=== PATIENT | female | born 1950 | race Caucasian/White ===

== ENCOUNTER 2018-09-09 20:53 | Emergency (ER) | payer MEDICARE ==
[~2018-09-09] VITALS: Ht 167.6 cm; Wt 65.0 kg
[2018-09-09 21:50] LABS: HEMATOCRIT 49.2 % (37.0-47.0); HEMOGLOBIN 16.3 g/dl (12.0-16.0); IMMATURE GRANULOCYTES 3.9 % (0.0-5.0); MEAN CELL VOLUME 110.6 fL CALC (80.0-100.0); MEAN CORPUSCULAR HGB 36.6 pG CALC (26.0-32.0); MEAN CORPUSCULAR HGB CONC 33.1 g/L CALC (32.0-36.0); NEUT# 12.32 thou/uL (2.00-7.15); RED BLOOD COUNT 4.45 mill/uL (4.20-5.60); RED CELL DISTRI WIDTH 14.6 % (11.5-15.5)
[2018-09-09 22:00] VITALS: BP 160/70
[2018-09-09 22:01] LABS: ALBUMIN 4.2 g/dL (3.2-5.0); ALKALINE PHOSPHATASE 41 u/l (38-126); ANION GAP 18 (6-22 (CALC)); BILIRUBIN, TOTAL 0.6 mg/dL (0.0-1.4); BUN 14 mg/dL (8-23); BUN/CREATININE RATIO 18 (12-20 (CALC)); CARBON DIOXIDE 19 mmol/l (22-30); CHLORIDE 109 mmol/l (95-108); CREATININE 0.8 mg/dL (0.5-1.0); GFR > 60 ML/MIN (>=60 (CALC)); GFR FOR AFR.AMER. > 60 ML/MIN (>=60 (CALC)); POTASSIUM 4.8 mmol/l (3.5-5.1); SGOT/AST 65 u/l (9-36); SODIUM 141 mmol/l (137-146); TOTAL PROTEIN 7.2 g/dL (6.3-8.2)
[2018-09-09 22:13] LABS: MYOGLOBIN 286 ng/mL (0 - 62)
== END 2018-09-09 22:08 | disposition short-term general hospital (02) ==
LOC: ED 20:53
PROVIDERS: Family Medicine
PROC: 0BH17EZ Insertion of Endotracheal Airway into Trachea, Via Natural or Artificial Opening (ICD-10-PCS; principal; 2018-09-09)
PROC: 0T9B70Z Drainage of Bladder with Drainage Device, Via Natural or Artificial Opening (ICD-10-PCS; 2018-09-09)
DX: J96.00 Acute respiratory failure, unspecified whether with hypoxia or hypercapnia (principal); J44.1 Chronic obstructive pulmonary disease with (acute) exacerbation; F17.210 Nicotine dependence, cigarettes, uncomplicated; R00.0 Tachycardia, unspecified; R06.02 Shortness of breath

== ENCOUNTER 2018-10-02 11:21 | Emergency (ER) | payer MEDICARE ==
[~2018-10-02] VITALS: Ht 167.6 cm; Wt 56.8 kg
[2018-10-02 12:06] LABS: HEMOGLOBIN 16.3 g/dl (12.0-16.0); IMMATURE GRANULOCYTES 0.9 % (0.0-5.0); MEAN CELL VOLUME 105.8 fL CALC (80.0-100.0); MEAN CORPUSCULAR HGB 35.2 pG CALC (26.0-32.0); MEAN CORPUSCULAR HGB CONC 33.3 g/L CALC (32.0-36.0); NEUT# 12.87 thou/uL (2.00-7.15); RED BLOOD COUNT 4.63 mill/uL (4.20-5.60); RED CELL DISTRI WIDTH 13.7 % (11.5-15.5)
[2018-10-02 12:23] LABS: ANION GAP 12 (6-22 (CALC)); BUN 23 mg/dL (8-23); BUN/CREATININE RATIO 22 (12-20 (CALC)); CHLORIDE 102 mmol/l (95-108); GFR 55 ML/MIN (>=60 (CALC)); GFR FOR AFR.AMER. > 60 ML/MIN (>=60 (CALC)); POTASSIUM 3.9 mmol/l (3.5-5.1); SODIUM 142 mmol/l (137-146)
[2018-10-02 12:28] LABS: CARBON DIOXIDE 32 mmol/l (22-30)
[2018-10-02] MEDS ORDERED: PROTONIX40 M2 PO (12:48)
[2018-10-02] MEDS ORDERED: BRILINTA90 MG PO (12:49)
[2018-10-02] MEDS ORDERED: ATORVASTATIN CA40 MG PO (12:49)
[2018-10-02] MEDS ORDERED: ENTRESTO 24-261 TAB PO (12:50)
[2018-10-02] MEDS ORDERED: SPIRONOLACTONE25 MG PO (12:51)
[2018-10-02] MEDS ORDERED: METO25TAB PO (12:51)
[2018-10-02] MEDS ORDERED: FUROSEMIDE40 MG PO (12:51)
[2018-10-02] MEDS ORDERED: PROAIR HFA108 MCG/AC IN (12:53)
[2018-10-02] MEDS ORDERED: ADULT ASPIRIN R81 MG PO (12:53)
[2018-10-02] MEDS ORDERED: FENOFIBRATE145 MG PO (12:53)
[2018-10-02] MEDS ORDERED: HUMALOG100 UNIT/M SC (12:56)
[2018-10-02] MEDS ORDERED: NEURONTIN100 MG PO (12:56)
[2018-10-02] MEDS ORDERED: LANTUS100 UNIT/M SC ×2 (14:07→14:09)
[2018-10-02] MEDS ORDERED: AUGMENTIN875TAB PO (14:19)
[2018-10-02] MEDS ORDERED: ZPAK PO (14:19)
[2018-10-02] MEDS ORDERED: PREDNISONE50 MG PO (14:23)
[2018-10-02] MEDS ORDERED: PROAIR HFA108 MCG/AC PO (14:23)
[2018-10-02 14:56] VITALS: BP 107/56
== END 2018-10-02 14:56 | disposition home or self-care (01) ==
LOC: ED 11:21
PROVIDERS: Family Medicine
DX: R06.02 Shortness of breath (principal); J44.9 Chronic obstructive pulmonary disease, unspecified; I11.0 Hypertensive heart disease with heart failure; I50.9 Heart failure, unspecified; E11.9 Type 2 diabetes mellitus without complications

== ENCOUNTER 2019-02-05 20:09 | Observation (INO) | payer MEDICARE ==
[~2019-02-05] VITALS: Ht 157.5 cm; Wt 66.5 kg
[~2019-02-05 20:09] MED LIST: ADULT ASPIRIN R81 MG PO; ATORVASTATIN CA40 MG PO; AUGMENTIN875TAB PO; BRILINTA90 MG PO; ENTRESTO 24-261 TAB PO; FENOFIBRATE145 MG PO; FUROSEMIDE40 MG PO; HUMALOG100 UNIT/M SC; LANTUS100 UNIT/M SC; METO25TAB PO; NEURONTIN100 MG PO; PREDNISONE50 MG PO; PROAIR HFA108 MCG/AC IN; PROAIR HFA108 MCG/AC PO; PROTONIX40 M2 PO; SPIRONOLACTONE25 MG PO; ZPAK PO
[2019-02-05] MEDS ORDERED: SYMBICORT1 AE1 IN (20:52)
[2019-02-05] MEDS ORDERED: HUMALOG100 UNIT/M SC (20:55)
[2019-02-05] MEDS ORDERED: BRILINTA90 MG PO (20:59)
[2019-02-05 21:04] LABS: HEMATOCRIT 45.9 % (37.0-47.0); HEMOGLOBIN 14.9 g/dl (12.0-16.0); IMMATURE GRANULOCYTES 0.7 % (0.0-5.0); MEAN CORPUSCULAR HGB 28.2 pG CALC (26.0-32.0); MEAN CORPUSCULAR HGB CONC 32.5 g/L CALC (32.0-36.0); NEUT# 11.84 thou/uL (2.00-7.15); RED BLOOD COUNT 5.28 mill/uL (4.20-5.60); RED CELL DISTRI WIDTH 13.7 % (11.5-15.5)
[2019-02-05 21:06] LABS: MEAN CELL VOLUME 86.9 fL CALC (80.0-100.0)
[2019-02-05 21:26] LABS: ALBUMIN 4.4 g/dL (3.2-5.0); BILIRUBIN, TOTAL 0.5 mg/dL (0.0-1.4); BUN 25 mg/dL (8-23); BUN/CREATININE RATIO 27 (12-20 (CALC)); CHLORIDE 97 mmol/l (95-108); CREATININE 0.9 mg/dL (0.5-1.0); GFR > 60 ML/MIN (>=60 (CALC)); GFR FOR AFR.AMER. > 60 ML/MIN (>=60 (CALC)); POTASSIUM 5.1 mmol/l (3.5-5.1); SGOT/AST 20 u/l (9-36); TOTAL PROTEIN 7.1 g/dL (6.3-8.2)
[2019-02-05 21:29] LABS: ALKALINE PHOSPHATASE 76 u/l (38-126); ANION GAP 21 (6-22 (CALC)); CARBON DIOXIDE 22 mmol/l (22-30); SODIUM 135 mmol/l (137-146)
[2019-02-05] MEDS ORDERED: GABAPENTIN100 MG PO (21:45)
[2019-02-05] MEDS ORDERED: CYANOCOBALAM IM (21:48)
[2019-02-05 21:52] LABS: URINE BILIRUBIN - DIPSTICK NEGATIVE (NEGATIVE); URINE BLOOD DIPSTICK NEGATIVE (NEGATIVE); URINE COLOR YELLOW; URINE GLUCOSE - DIPSTICK >=1000 mg/dL (NEGATIVE); URINE KETONE NEGATIVE (NEGATIVE); URINE LEUK ESTERASE NEGATIVE (NEGATIVE); URINE NITRITE - DIPSTICK NEGATIVE (Negative); URINE PROTEIN - DIPSTICK NEGATIVE (NEG-TRACE); URINE UROBILINOGEN - DIPSTICK 0.2 E.U./dL (0.2)
[2019-02-06] VITALS (7 sets, daily range): BP systolic 95–139; BP diastolic 51–76
[2019-02-06 05:04] LABS: IMMATURE GRANULOCYTES 1.3 % (0.0-5.0); MEAN CELL VOLUME 87.2 fL CALC (80.0-100.0); MEAN CORPUSCULAR HGB 28.3 pG CALC (26.0-32.0); MEAN CORPUSCULAR HGB CONC 32.4 g/L CALC (32.0-36.0); NEUT# 11.34 thou/uL (2.00-7.15); RED BLOOD COUNT 4.46 mill/uL (4.20-5.60); RED CELL DISTRI WIDTH 13.5 % (11.5-15.5)
[2019-02-06 05:06] LABS: HEMATOCRIT 38.9 % (37.0-47.0); HEMOGLOBIN 12.6 g/dl (12.0-16.0)
[2019-02-06 09:13] LABS: ALKALINE PHOSPHATASE 53 u/l (38-126); ANION GAP 16 (6-22 (CALC)); BILIRUBIN, TOTAL 0.4 mg/dL (0.0-1.4); BUN 22 mg/dL (8-23); BUN/CREATININE RATIO 28 (12-20 (CALC)); CARBON DIOXIDE 20 mmol/l (22-30); CHLORIDE 105 mmol/l (95-108); CREATININE 0.8 mg/dL (0.5-1.0); GFR > 60 ML/MIN (>=60 (CALC)); GFR FOR AFR.AMER. > 60 ML/MIN (>=60 (CALC)); POTASSIUM 4.9 mmol/l (3.5-5.1); SGOT/AST 16 u/l (9-36); SODIUM 136 mmol/l (137-146)
[2019-02-06 09:40] LABS: ALBUMIN 3.3 g/dL (3.2-5.0); TOTAL PROTEIN 5.4 g/dL (6.3-8.2)
[2019-02-06 11:28] LABS: CHOLESTEROL HDL RATIO 4.2 (<4.4 (CALC))
[2019-02-06] MEDS ORDERED: LANTUS100 UNIT/M SC (15:07)
[2019-02-06] MEDS ORDERED: NOVOLOG100 UNIT/M SC (15:09)
[2019-02-06] MEDS ORDERED: FENOFIBRATE160 MG PO (15:16)
[2019-02-07] VITALS: BP 118/56
[2019-02-07 04:39] VITALS: BP 132/54
[2019-02-07 05:25] LABS: HEMATOCRIT 40.5 % (37.0-47.0); HEMOGLOBIN 12.8 g/dl (12.0-16.0); IMMATURE GRANULOCYTES 1.1 % (0.0-5.0); MEAN CELL VOLUME 88.4 fL CALC (80.0-100.0); MEAN CORPUSCULAR HGB 27.9 pG CALC (26.0-32.0); MEAN CORPUSCULAR HGB CONC 31.6 g/L CALC (32.0-36.0); NEUT# 8.15 thou/uL (2.00-7.15); RED BLOOD COUNT 4.58 mill/uL (4.20-5.60); RED CELL DISTRI WIDTH 13.7 % (11.5-15.5)
[2019-02-07 05:40] LABS: ANION GAP 13 (6-22 (CALC)); BUN 23 mg/dL (8-23); BUN/CREATININE RATIO 29 (12-20 (CALC)); CARBON DIOXIDE 25 mmol/l (22-30); CHLORIDE 107 mmol/l (95-108); CREATININE 0.8 mg/dL (0.5-1.0); GFR > 60 ML/MIN (>=60 (CALC)); GFR FOR AFR.AMER. > 60 ML/MIN (>=60 (CALC)); MAGNESIUM 1.9 mg/dL (1.6-2.3); POTASSIUM 4.4 mmol/l (3.5-5.1); SODIUM 139 mmol/l (137-146)
[2019-02-07 08:01] VITALS: BP 131/71
[2019-02-07] MEDS ORDERED: ENTRESTO 24-261 TAB PO (09:40)
[2019-02-07 10:55] VITALS: BP 125/62
[2019-02-07] MEDS ORDERED: KEFLEX500 M1 PO (14:40)
== END 2019-02-07 15:40 | disposition home or self-care (01) ==
LOC: ED 20:09 → ED-I 23:10 → ED 23:56 → MS2 23:57
PROVIDERS: Emergency Medicine; Nurse Practitioner Family; ADMIT Internal Medicine Nephrology; ATTEND Internal Medicine Nephrology
DX: L03.114 Cellulitis of left upper limb (principal); E11.65 Type 2 diabetes mellitus with hyperglycemia; I16.0 Hypertensive urgency; I11.0 Hypertensive heart disease with heart failure; I50.22 Chronic systolic (congestive) heart failure; E11.42 Type 2 diabetes mellitus with diabetic polyneuropathy; J43.9 Emphysema, unspecified; E78.5 Hyperlipidemia, unspecified; I25.10 Atherosclerotic heart disease of native coronary artery without angina pectoris; E87.2 Acidosis; I25.2 Old myocardial infarction; Z79.4 Long term (current) use of insulin; Z87.891 Personal history of nicotine dependence; Z95.5 Presence of coronary angioplasty implant and graft
CPT/HCPCS: J0692; J3370

== ENCOUNTER 2019-08-07 21:34 | Emergency (ER) | payer MEDICARE ==
[~2019-08-07] VITALS: Ht 157.5 cm; Wt 64.0 kg
[~2019-08-07 21:34] MED LIST changes: +CYANOCOBALAM IM; +FENOFIBRATE160 MG PO; +GABAPENTIN100 MG PO; +KEFLEX500 M1 PO; +NOVOLOG100 UNIT/M SC; +SYMBICORT1 AE1 IN
[2019-08-07] MEDS ORDERED: BYDUREON B2 MG/0.85 SC (22:03)
[2019-08-07] MEDS ORDERED: PROAIR HFA108 MCG/AC IN (22:09)
[2019-08-07] MEDS ORDERED: REFRESH LIQUIGEL 1% OU (22:10)
[2019-08-07] MEDS ORDERED: SPIRONOLACT25 MG PO (22:11)
[2019-08-07] MEDS ORDERED: SYMBICORT1 AE1 IN (22:12)
[2019-08-07 22:32] LABS: HEMATOCRIT 43.2 % (37.0-47.0); HEMOGLOBIN 13.9 g/dl (12.0-16.0); MEAN CELL VOLUME 83.4 fL CALC (80.0-100.0); MEAN CORPUSCULAR HGB 26.8 pG CALC (26.0-32.0); MEAN CORPUSCULAR HGB CONC 32.2 g/L CALC (32.0-36.0); NEUT# 12.73 thou/uL (2.00-7.15); RED BLOOD COUNT 5.18 mill/uL (4.20-5.60); RED CELL DISTRI WIDTH 16.9 % (11.5-15.5)
[2019-08-07 22:43] LABS: ALBUMIN 3.9 g/dL (3.2-5.0); CREATININE 1.5 mg/dL (0.5-1.0); POTASSIUM 4.4 mmol/l (3.5-5.1)
[2019-08-07 22:44] LABS: BILIRUBIN, TOTAL 0.6 mg/dL (0.0-1.4)
[2019-08-08 00:20] LABS: URINE BILIRUBIN - DIPSTICK NEGATIVE (NEGATIVE); URINE BLOOD DIPSTICK SMALL (NEGATIVE); URINE COLOR YELLOW; URINE GLUCOSE - DIPSTICK NEGATIVE (NEGATIVE); URINE KETONE NEGATIVE (NEGATIVE); URINE PH 5.5 (4.5-8.0); URINE PROTEIN - DIPSTICK 30 mg/dL (NEG-TRACE); URINE UROBILINOGEN - DIPSTICK 0.2 E.U./dL (0.2)
[2019-08-08 00:22] LABS: URINE LEUK ESTERASE SMALL (NEGATIVE)
[2019-08-08 00:30] LABS: URINE NITRITE - DIPSTICK NEGATIVE (Negative)
[2019-08-08 00:31] LABS: URINE WBC >100 WBC/hpf (0-5)
[2019-08-08 00:32] LABS: URINE BACTERIA MANY hpf; URINE EPITHELIAL CELLS MODERATE EPI/hpf (0-FEW)
[2019-08-08 03:52] VITALS: BP 131/59
== END 2019-08-08 03:51 | disposition short-term general hospital (02) ==
LOC: ED 21:34
PROVIDERS: Emergency Medicine
DX: A41.9 Sepsis, unspecified organism (principal); N39.0 Urinary tract infection, site not specified; R07.9 Chest pain, unspecified; R09.02 Hypoxemia; I71.2 Thoracic aortic aneurysm, without rupture; R00.0 Tachycardia, unspecified; I11.0 Hypertensive heart disease with heart failure; I50.9 Heart failure, unspecified; I25.10 Atherosclerotic heart disease of native coronary artery without angina pectoris; J44.9 Chronic obstructive pulmonary disease, unspecified; E11.9 Type 2 diabetes mellitus without complications; I25.2 Old myocardial infarction; B96.20 Unspecified Escherichia coli [E. coli] as the cause of diseases classified elsewhere; Z95.5 Presence of coronary angioplasty implant and graft; Z79.4 Long term (current) use of insulin

== ENCOUNTER 2019-08-15 04:54 | Observation (INO) | payer MEDICARE ==
[~2019-08-15] VITALS: Ht 157.5 cm; Wt 64.9 kg
[~2019-08-15 04:54] MED LIST changes: +BYDUREON B2 MG/0.85 SC; -METO25TAB PO; +REFRESH LIQUIGEL 1% OU; +SPIRONOLACT25 MG PO; +TOPROL XL50 MG PO
--- NOTE | 2019-08-15 04:54 | NUR ---
PT WHEELED STRAIGHT BACK TO ROOM 12 AND TRIAGED
--- NOTE | 2019-08-15 05:05 | NUR ---
A/O F WITH RAPID HEART RATE SENSATION WHICH AWAKENED HER FROM SLEEP WEAKNESS DENIES CP NO SWEATS NO NAUSEA NO SOB.JUST RELEASED FROM [facility] FOR CARDIAC EVAL WHICH WAS NEGATIVE AND TX OF UTI
--- NOTE | 2019-08-15 05:17 | NUR ---
SUDDEN ONSET OF RAPID HR UP TO [address] Santo CALLED TO BEDSIDE
[2019-08-15 05:47] LABS: HEMATOCRIT 48.7 % (37.0-47.0); HEMOGLOBIN 15.4 g/dl (12.0-16.0); IMMATURE GRANULOCYTES 1.9 % (0.0-5.0); MEAN CELL VOLUME 83.2 fL CALC (80.0-100.0); MEAN CORPUSCULAR HGB 26.3 pG CALC (26.0-32.0); MEAN CORPUSCULAR HGB CONC 31.6 g/L CALC (32.0-36.0); NEUT# 11.56 thou/uL (2.00-7.15); RED BLOOD COUNT 5.85 mill/uL (4.20-5.60); RED CELL DISTRI WIDTH 18.1 % (11.5-15.5)
[2019-08-15 05:57] LABS: ALBUMIN 4.3 g/dL (3.2-5.0); BILIRUBIN, TOTAL 0.5 mg/dL (0.0-1.4); CREATININE 1.2 mg/dL (0.5-1.0); POTASSIUM 4.2 mmol/l (3.5-5.1); TOTAL PROTEIN 7.6 g/dL (6.3-8.2)
[2019-08-15 06:05] LABS: ACT PARTIAL THROMBO TIME 23.4 SECONDS (20.0-32.5); D-DIMER 0.61 mg/L (0.19-0.60); PROTHROMBIN TIME 10.1 SECONDS (9.0-12.5)
--- NOTE | 2019-08-15 06:13 | NUR ---
HR IS 80-90 BPM.W/P/D SKIN SR NO ECTOPY.NO SWEATS NO NAUSEA,NO SOB.S/S OF PALPITATIONS HAVE RESOLVED
[2019-08-15 06:33] LABS: URINE BILIRUBIN - DIPSTICK NEGATIVE (NEGATIVE); URINE BLOOD DIPSTICK TRACE-INTACT (NEGATIVE); URINE COLOR YELLOW; URINE GLUCOSE - DIPSTICK NEGATIVE (NEGATIVE); URINE KETONE NEGATIVE (NEGATIVE); URINE LEUK ESTERASE NEGATIVE (NEGATIVE); URINE NITRITE - DIPSTICK NEGATIVE (Negative); URINE PH 7.5 (4.5-8.0); URINE PROTEIN - DIPSTICK NEGATIVE (NEG-TRACE); URINE UROBILINOGEN - DIPSTICK 0.2 E.U./dL (0.2)
[2019-08-15 06:36] LABS: BARBITURATES NEGATIVE (NEGATIVE); COCAINE NEGATIVE (NEGATIVE); METHADONE NEGATIVE (NEGATIVE); OXCYCODONE NEGATIVE (NEGATIVE); TETRAHYDROCANNABIONOL NEGATIVE (NEGATIVE); TRICYLIC ANTIDEPRESSANTS NEGATIVE (NEGATIVE)
--- NOTE | 2019-08-15 06:52 | NUR ---
BEDSIDE PT REPORT TO JOVANNY
--- NOTE | 2019-08-15 07:02 | NUR ---
PT RESTING SUPINE WITH HOB ELEVATED WITH IVF BOLUS INFUSING WELL. NO SIGNS OR SYMPTOMS OF DISTRESS. HR 83. EDP AT BEDSIDE TO DISCUSS POC AND ADMISSION WITH PT AND WHO ARE AGREEABLE.
--- NOTE | 2019-08-15 07:23 | NUR ---
REPORT CALLED TO BIPIN GARCIA
--- NOTE | 2019-08-15 07:25 | NUR ---
PT ARRIVED FROM ER VIA STRETCHER ACCOMPANIED BY STAFF. AMBULATED TO THE ROOM WITH STAND BY ASSIST.
[2019-08-15 07:27] VITALS: BP 145/59
--- NOTE | 2019-08-15 07:28 | NUR ---
PT TRANSPORTED TO [place] VIA STRETCHER ON TELEMETRY IN STABLE CONDITION
[2019-08-15 09:28] LABS: CHOLESTEROL HDL RATIO 5.3 (<4.4 (CALC)); MAGNESIUM 1.8 mg/dL (1.6-2.3)
--- NOTE | 2019-08-15 10:00 | NUR ---
ASSESSMENT IS COMPLETED: IV SITE IS FREE FROM REDNESS OR EDEMA. HR IS REG,PULSES ARE STRONG X4, ABD IS SOFT WITH ACTIVE BS, BREATH SOUNDS ARE CLEAR,BILATERALLY, TELE MONITOR IN PLACE CONTINUE TO OSBERVE AND MONITR
--- NOTE | 2019-08-15 10:10 | NUR ---
TONIE CALDERON ON THE UNIT GAVE RESULTS OF LACTIC LEVEL WILL ORDER IV FLUIDS
--- NOTE | 2019-08-15 12:05 | NUR ---
PT IS RELAXING IN BED , PLACED O2 ON HER DUE TO SOB ON EXERTION. INFORMED TONIE CALDERON. PT STATED" THIS HAPPENS ALL OF THE TIME". IV FLUIDS INFUSING DUE TO HIGH LACTIC ACID LEVEL. CONTINUE TO OBSERVE AND MONITOR.,
--- NOTE | 2019-08-15 14:05 | NUR ---
IN TO VISIT WITH PT.
--- NOTE | 2019-08-15 16:05 | NUR ---
PT IS RELAXING IN BED WITH NO DISTRESS NOTED. IV SITE IS FREE FROM REDNESS OR EDEMA.
--- NOTE | 2019-08-15 16:32 | NUR ---
RECEIVED A CALL FROM ER RE: PT HAVING AFIB. OBTAINED AN EKG , READING SR WITH PREMATURE ATRIAL COMPLEX POSSIBLE ANTERIOR INFARCT. SHOWED TONIE DIAZP THE EKG REPORT. CALLED ER AND INQUIRED PT STATUS AT HE TIME OF EKG, WENT INTO SR .
[2019-08-15 16:33] VITALS: BP 133/41
--- NOTE | 2019-08-15 17:00 | NUR ---
SHOWED TONIE IC DESIGNER STANDARD CELLS THE EKG, COMPARED TO THE STRIP FROM ER. NO NEW ORDERS AT THIS TIME.
[2019-08-15 19:00] VITALS: BP 157/62
--- NOTE | 2019-08-15 19:57 | NUR ---
PT IN BED IN LOW FOWLERS POSITION EATING W/ AT BEDSIDE. PT MEDICATED ORDERS PROVIDE. DENIES ANY OTHER NEEDS AT THIS TIME. CALL LIGHT AT SIDE.
--- NOTE | 2019-08-15 20:50 | NUR ---
ED CALLED REGARDING TELEMETRY SHOWING ARTIFACT. PT IS LAYING ON HER SIDE IN THE BED VISITING W/CONTROL ELECTRICIAN AND . LEADS CHECKED/ALL ARE IN PLACE AND LIGHTING ON TELEMETRY BOX SHOWS PROPER FUNCTION AND READING. PT ASKED IF WE COULD COME BACK WHEN HER COMPANY LEAVES TO REPLACE LEADS FOR PRIVACY.
--- NOTE | 2019-08-15 21:20 | NUR ---
ED CALLED TO REPORT POSSIBLE ST DEPRESSION READINGS. RESPIRATORY PAIGED FOR EKG. V/S ASSESSED. PT IS SITTING UP IN BED VISITING W/COMPANY. NO S/O DISTRESS AT THIS TIME. WILL GET EKG AND NOTIFY PHYSICIAN NEEDED.
--- NOTE | 2019-08-15 21:28 | NUR ---
RESPIRATORY IN W/PT AT THIS TIME. PT DENIES ANY PALPATATIONS,SOB OR CHEST PAIN. BP 128/70,HR97, 0292%ON 02 2L, R.24.
[2019-08-15 21:40] VITALS: BP 128/70
--- NOTE | 2019-08-15 21:42 | NUR ---
NOTIFIED PHYSICIAN OF MOST RECENT EKG RESULTS, V/S AND THAT PT REPORTS BEING ASYMPTOMATIC AT THIS TIME. NEW ORDERS RECEIVED FOR 1X TROPONIN AT THIS TIME AND TO AWAIT FURTHER ORDERS FROM PHYSICIAN.
--- NOTE | 2019-08-15 21:58 | NUR ---
ORDERS RECEIVED FROM PHYSICIAN TO MONITOR TREND TROPONIN ORDERED, REPEAT EKG IN AM AND ORDER CARDIOLOGY CONSULT IN AM LONG PT IS ASYMPTOMATIC. PT REPORTS BEING ASYMPTOMATIC AT THIS TIME, DENYING SOB,PALPATATIONS, CP OR ANY OTHER SYMPTOMS. PT IS RESTING COMFORTABLE IN BED W/FAMILY AT BEDSIDE AND TV ON.
[2019-08-16] VITALS (7 sets, daily range): BP systolic 122–173; BP diastolic 50–75
--- NOTE | 2019-08-16 00:21 | NUR ---
PT MEDICATED ORDERS PROVIDE. SHE ASKED IF WE WOULD WAIT UNTIL V/S OR LAB DRAWS TO BE AWOKEN FOR MEDICATION. NO S/O DISTRESS AT THIS TIME. PT DENIES ANY PALPATATIONS, SOB,CP. REPORTS SLEEPING SOUNDLY.
--- NOTE | 2019-08-16 02:19 | NUR ---
PHYSICIAN NOTIFIED PT HR SUSTAINED IN 140'S/150'S PER DEPUTY PROBATION OFFICER IN ED. PT IS SYMPTOMATIC REPORTING SOB,FEELS LIKE HER "HEART IS RACING." BP 125/75, RESP 28 TEMP 97 AT THIS TIME. 97% 02 ON 2L. NEW ORDERS RECEIVED.
--- NOTE | 2019-08-16 02:32 | NUR ---
MEDICATION NOT ADMINISTERED AT THIS TIME. HR IN 80'S SUSTAINING. WILL CONTINUE TO MONITOR CLOSELY AND PT INSTRUCTED TO CALL IF SHE BECOMES FURTHER SYMPTOMATIC, SHE IS REPORTING FEELING IMPROVED AT THIS TIME. CALL LIGHT IN PT'S HAND.
--- NOTE | 2019-08-16 02:35 | NUR ---
ED CALLED TO REPORT PT HR IN 140'S TO 150. PT APPEARS SYMPTOMATIC W/SOB, REPORTS HEART FEELS LIKE IT'S RACING. PT SUSTAINING HR IN 130'S. BP 125/75, RESP28, TEMP 97. PHYSICIAN NOTIFIED AND ORDERS RECEIVED.
--- NOTE | 2019-08-16 03:07 | NUR ---
PT IS RESTING, REPORTS FEELING BETTER, JUST "REALLY TIRED."
--- NOTE | 2019-08-16 03:42 | NUR ---
PT APPEARS TO BE RESTING AT THIS TIME. EYES ARE CLOSED. NO S/O DISTRESS.
[2019-08-16 04:18] LABS: HEMOGLOBIN 12.5 g/dl (12.0-16.0); IMMATURE GRANULOCYTES 1.5 % (0.0-5.0); MEAN CELL VOLUME 83.2 fL CALC (80.0-100.0); MEAN CORPUSCULAR HGB 26.7 pG CALC (26.0-32.0); MEAN CORPUSCULAR HGB CONC 32.1 g/L CALC (32.0-36.0); NEUT# 7.22 thou/uL (2.00-7.15); RED BLOOD COUNT 4.69 mill/uL (4.20-5.60)
[2019-08-16 04:28] LABS: ANION GAP 11 (6-22 (CALC)); BUN 23 mg/dL (8-23); BUN/CREATININE RATIO 24 (12-20 (CALC)); CARBON DIOXIDE 26 mmol/l (22-30); CHLORIDE 105 mmol/l (95-108); GFR 55 ML/MIN (>=60 (CALC)); GFR FOR AFR.AMER. > 60 ML/MIN (>=60 (CALC)); MAGNESIUM 1.7 mg/dL (1.6-2.3); POTASSIUM 4.5 mmol/l (3.5-5.1); SODIUM 137 mmol/l (137-146)
--- NOTE | 2019-08-16 08:00 | NUR ---
PT AWAKE, ALERT, ORIENTED X 3. SHE IS AMBULATORY IN ROOM WITHOUT UNSTEADINESS. LUNGS CLEAR, RA. PT HAS NOT HAD ELEVATED HR THIS MORNING.
--- NOTE | 2019-08-16 08:08 | NUR ---
I CALLED THE [place] OFFICE FOR THE CONSULTAION ORDERED FOR DR. HAUSER. I CALLED @0802 AM AND SPOKE WITH DAE. THE CONSULTATION WAS FOR PALPATIONS.
--- NOTE | 2019-08-16 10:30 | NUR ---
6 MINUTE WALK TEST COMPLETED, PT HR 81, 93 AND 88, HIGH OF 108 ONCE. O-2 SATS 93, 94, 95. NO COMPLAINTS OF SHORTNESS OF BREATH.
--- NOTE | 2019-08-16 12:00 | NUR ---
PT SEEN BY AZALEA CRUZ FOR DR HAUSER, METOPROLOL INCREASED. PT AMBULATORY IN ROOM DESIRED, NO DISTRESS OR COMPLAINTS.
--- NOTE | 2019-08-16 18:44 | NUR ---
PT HAS BEEN TO CT FOR SWELLING NOTED TO BASE OF NECK. PT HAS ALSO HAD INFECTIOUS DISEASE CONSULT WITH DR BENITEZ [facility].
--- NOTE | 2019-08-16 19:00 | NUR ---
RECEIVED REPORT FROM NURSE LUGO PATIENT RESTING IN BED, WITH EVEN UNLABORED BREATHING CALL LIGHT AT REACH.
--- NOTE | 2019-08-16 21:00 | NUR ---
PATIENT ALERT AND ORIENTED X 3 ABLE TO MAKE NEEDS KNONW, WITH SALINE LOCK ON RAC G20 PATENT AND FLUSHES WELL, REMAINS ON TELE SR 69 WITH PAC'S/PVC'S, NOTED TO HAVE BRUISING OON BOTH ARMS, LBM 10/14, C/O PAIN ON LEFT HIP PRN TRAMADOL GIVEN WILL REEVALUATE, CALL LIGHT WITHIN REACH.
[2019-08-17 00:26] VITALS: BP 132/79
--- NOTE | 2019-08-17 01:12 | NUR ---
RECEIVED A PHONE CALL FROM [facility] PT TELE SHOWS SR WAP, V/S TAKEN FOLLOWS TEMP 97.3 P 74 R 18, BP 116/55 POX 94% RA, PATIENT ASYMPTOMATIC DENIES PAIN AT THIS TIME, EKG ORDERED.
[2019-08-17 01:23] VITALS: BP 116/55
--- NOTE | 2019-08-17 01:49 | NUR ---
EKG DONE AT THIS TIME, PATIENT REMAINS ASYMPTOMATIC, DENIES CHEST DISCOMFORT, VSS AT THIS TIME, WILL CONTINUE TO MONITOR.
--- NOTE | 2019-08-17 01:49 | NUR ---
EKG DONE, ED DR YU AWARE OF SR WITH WAP/MAR READING NO NEW ORDERS MADE AT THIS TIME.
[2019-08-17 04:15] VITALS: BP 122/78
--- NOTE | 2019-08-17 04:18 | NUR ---
PATIENT APPEARS TO BE RESTING WITH EYES CLOSED, WITH EVEN UNLABORED BREATHING CALL LIGHT WITHIN REACH.
[2019-08-17 05:09] LABS: HEMOGLOBIN 12.8 g/dl (12.0-16.0); IMMATURE GRANULOCYTES 1.3 % (0.0-5.0); MEAN CELL VOLUME 83.2 fL CALC (80.0-100.0); MEAN CORPUSCULAR HGB 26.6 pG CALC (26.0-32.0); NEUT# 8.33 thou/uL (2.00-7.15); RED BLOOD COUNT 4.81 mill/uL (4.20-5.60); RED CELL DISTRI WIDTH 16.8 % (11.5-15.5)
[2019-08-17 05:23] LABS: ANION GAP 14 (6-22 (CALC)); BUN 21 mg/dL (8-23); BUN/CREATININE RATIO 25 (12-20 (CALC)); CARBON DIOXIDE 25 mmol/l (22-30); CHLORIDE 100 mmol/l (95-108); CREATININE 0.9 mg/dL (0.5-1.0); GFR > 60 ML/MIN (>=60 (CALC)); GFR FOR AFR.AMER. > 60 ML/MIN (>=60 (CALC)); MAGNESIUM 1.8 mg/dL (1.6-2.3); POTASSIUM 5.1 mmol/l (3.5-5.1); SODIUM 134 mmol/l (137-146)
--- NOTE | 2019-08-17 06:23 | NUR ---
PATIENT C/O LEFT HIP PAIN PS 05/12 REQUESTED PRN TYLENOL AT THIS TIME.
[2019-08-17 08:00] VITALS: BP 142/61
--- NOTE | 2019-08-17 08:00 | NUR ---
PT ALERT AND ORIENTED X 3, AMBULATORY IN ROOM WITH STEADY GAIT. LUNGS ARE CLEAR, BUT WHEEZING HEARD WITH COUGHS. 2 LPM NC. SKIN INTACT.
[2019-08-17 11:26] VITALS: BP 152/64
--- NOTE | 2019-08-17 12:00 | NUR ---
PT SEEN BY PHYSICIAN THIS MORNING, WILL HAVE CT TODAY. PT CONTINUES AMBULATORY IN ROOM WITH STEADY GAIT, CAN GO WITHOUT OXYGEN IF DESIRES.
[2019-08-17 15:20] VITALS: BP 124/59
--- NOTE | 2019-08-17 16:00 | NUR ---
PT UPDATED ON CT RESULTS. PT HOPEFUL FOR DISCHARGE TO HOME TODAY. NO SHORTNESS OF BREATH OR PALPITATIONS.
[2019-08-17] MEDS ORDERED: TOPROL XL50 MG PO (16:08)
[2019-08-17] MEDS ORDERED: CIPROFLOXACN500 MG PO (16:11)
--- NOTE | 2019-08-17 16:52 | NUR ---
PT HAS BEEN DISCHARGED TO HOME. PT VERBALIZES UNDERSTANDING OF DC INSTRUCTIONS, TAKEN TO VEHICLE BY WHEELCHAIR, ACCOMPANIED BY . PT LEAVES IN STABLE CONDITION, 2 RXs.
== END 2019-08-17 16:43 | disposition home or self-care (01) ==
LOC: ED 04:54 → ED-I 05:13 → ED 06:56 → MS2 06:57
PROVIDERS: Family Medicine; Nurse Practitioner Family; ADMIT Internal Medicine; ATTEND Internal Medicine
DX: I47.1 Supraventricular tachycardia (principal); I11.0 Hypertensive heart disease with heart failure; I50.22 Chronic systolic (congestive) heart failure; E11.42 Type 2 diabetes mellitus with diabetic polyneuropathy; I25.10 Atherosclerotic heart disease of native coronary artery without angina pectoris; J43.9 Emphysema, unspecified; E78.5 Hyperlipidemia, unspecified; N17.9 Acute kidney failure, unspecified; E86.0 Dehydration; I25.5 Ischemic cardiomyopathy; E11.43 Type 2 diabetes mellitus with diabetic autonomic (poly)neuropathy; K31.84 Gastroparesis; R59.0 Localized enlarged lymph nodes; D72.829 Elevated white blood cell count, unspecified; D47.3 Essential (hemorrhagic) thrombocythemia; I25.2 Old myocardial infarction; Z87.891 Personal history of nicotine dependence; Z79.4 Long term (current) use of insulin; Z95.5 Presence of coronary angioplasty implant and graft; Z86.19 Personal history of other infectious and parasitic diseases
CPT/HCPCS: J0153; Q9967

== ENCOUNTER 2019-10-24 12:37 | Observation (INO) | payer MEDICARE ==
[~2019-10-24] VITALS: Ht 157.5 cm; Wt 64.5 kg
[~2019-10-24 12:37] MED LIST changes: +CIPROFLOXACN500 MG PO
--- NOTE | 2019-10-24 12:48 | NUR ---
PATIENT TO ROOM VIA EMS AND PHYSICIAN AT BEDSIDE FOR EVAL
--- NOTE | 2019-10-24 12:55 | NUR ---
PT RESTING IN STRETCHER IN NAD. PT DENIES ANY NEEDS AND TALKING AND LAUGHIN WITH STAFF. PT AND FAMILY UPDATED ON PENDING RESULTS AND PLAN OF CARE.
--- NOTE | 2019-10-24 13:00 | NUR ---
PT REFUSED SOLEMEDROL STATING "IT MAKES ME CRAZY". NOTIFIED.
[2019-10-24 13:02] LABS: HEMATOCRIT 44.4 % (37.0-47.0); HEMOGLOBIN 14.2 g/dl (12.0-16.0); IMMATURE GRANULOCYTES 0.5 % (0.0-5.0); MEAN CORPUSCULAR HGB 28.6 pG CALC (26.0-32.0); NEUT# 6.11 thou/uL (2.00-7.15); RED BLOOD COUNT 4.96 mill/uL (4.20-5.60); RED CELL DISTRI WIDTH 21.2 % (11.5-15.5)
[2019-10-24 13:11] LABS: MEAN CELL VOLUME 89.5 fL CALC (80.0-100.0)
[2019-10-24 13:22] LABS: ALBUMIN 4.3 g/dL (3.2-5.0); BILIRUBIN, TOTAL 0.5 mg/dL (0.0-1.4); CREATININE 1.1 mg/dL (0.5-1.0); POTASSIUM 4.6 mmol/l (3.5-5.1); TOTAL PROTEIN 7.5 g/dL (6.3-8.2)
--- NOTE | 2019-10-24 14:00 | NUR ---
PT HAD PERIOD OF HEART RATE IN 140'S. THIS NURSE AT BEDSIDE FOR EKG, PT COUGHED AND RATE DROPPED BACK INTO THE 80'S-90'S AFIB.
--- NOTE | 2019-10-24 14:15 | NUR ---
PT HEART RATE UP TO 140'S AFIB AT THIS TIME. PT REPROTS FEELING SOB, VSS. PT PLACED ON 2L NC AT THIS TIME. PT EYES CLOSING AND PT BECAME LIMP. PT AWAKENS TO TACTILE STIMULI. PT DROWSY, SLOW TO ANSWER. MD AT BEDSIDE.
--- NOTE | 2019-10-24 14:25 | NUR ---
PT HAD ANOTHER NEAR SYNCOPAL EPISODE. PT BEING PRE[ARED TO GO TO CT FOR STAT CT BRAIN AND CHEST WITH IV CONTRAST.
--- NOTE | 2019-10-24 14:30 | NUR ---
PT TAKEN TO CT SCAN ON HOIST OPERATOR. PT TALKING AND ANSWERING QUESTIONS APPROPRIATELY. PT AWARE OF PLAN OF CARE AND CT SCAN. PT ALERT AND ORIENTED.
--- NOTE | 2019-10-24 14:55 | NUR ---
PT REPORTS FEELING TIRED AND DIFFICULTY KEEPING EYES OPEN. PT OPENS EYES TO VERBAL STIMULI. VSS BP 117/56, RR 16, HR 85, 97% ON 2L NC.
--- NOTE | 2019-10-24 15:10 | NUR ---
PT REMAIN AWARE AND ALERT THROUGHOUT CT SCANS. PT RETURNED TO ROOM, LINENS CHANGED AND PURE WICCK APPLIED. LIGHTS DIMMED FOR COMFORT, IV FLUIDS INFUSING WITH NO DIFFICULTY. PT CALL QUINTANILLA WITHIN REACH AND CURTAIN REMAINS OPEN FOR OBSERVATION. MONITOR SHOWING 80'S AFIB AT THIS TIME.
--- NOTE | 2019-10-24 15:45 | NUR ---
PT RESTING IN STRETCHER IN NAD. TALKING ON PHONE. PT DENIES ANY NEEDS, CALL QUINTANILLA WITHIN REACH.
--- NOTE | 2019-10-24 16:13 | NUR ---
MD AT BEDSIDE TO DISCUSS RESULTS AND PLAN FOR ADMISSION.
--- NOTE | 2019-10-24 16:27 | NUR ---
REPORT CALLED TO HEIKE MURRAY.
--- NOTE | 2019-10-24 16:55 | NUR ---
Admission Note Report Given to: TREVOR Transported by: Wheelchair X Stretcher Transported with: X Nurse Transporter X Patent IV X O2 X Distillery Supervisor PT TO ICU BED 5 IN STABLE CONDITION. PT TRANSFERRED SELF TO BED AND DENIES ANY DIZZINESS. BEDSIDE REPORT PROVIDED AND CARE RELINQUISHED TO TREVOR. ACCEPTING NURSE ALSO AWARE OF NEED TO HOLD METFORMIN FOR [address] SCANS WITH IV CONTRAST.
--- NOTE | 2019-10-24 17:05 | NUR ---
RECEIVED PT FROM ER VIA STRETCHER. PT MOVED SELF FROM STRETCHER TO BED WITH MINIMUMAL ASSISTANCE. PT ALERT AND ORIENTED. SKIN WARM AND DRY. COLOR PINK. O2 AT 2 LITERS VIA NC. ROOM ORIENTATION GIVEN TO PATIENT WITH VERBAL FEEDBACK. CALL LIGHT INSTRUCTED WITH VERBAL FEEDBACK. HEART MONTIOR, BLOOD PRESSURE CUFF, AND O2 SENSOR ATTACHED WITH VERBAL INSTRUCTION OF RATIONALE OF EACH. ASSESSMENT COMPLETED. WILL CONTINUE TO MONITOR STATUS. CALL LIGHT WITHIN REACH.
[2019-10-24 17:15] VITALS: BP 141/68
[2019-10-24 17:28] LABS: URINE BILIRUBIN - DIPSTICK NEGATIVE (NEGATIVE); URINE BLOOD DIPSTICK NEGATIVE (NEGATIVE); URINE COLOR YELLOW; URINE GLUCOSE - DIPSTICK NEGATIVE (NEGATIVE); URINE KETONE NEGATIVE (NEGATIVE); URINE LEUK ESTERASE NEGATIVE (NEGATIVE); URINE PROTEIN - DIPSTICK NEGATIVE (NEG-TRACE); URINE SPECIFIC GRAVITY 1.015; URINE UROBILINOGEN - DIPSTICK 0.2 E.U./dL (0.2)
[2019-10-24 17:46] LABS: URINE NITRITE - DIPSTICK POSITIVE (Negative)
[2019-10-24 17:47] LABS: URINE BACTERIA FEW hpf; URINE SQUAMOUS EPITHELIAL CELL FEW EPI/hpf (0-FEW)
[2019-10-24 18:00] VITALS: BP 191/96
--- NOTE | 2019-10-24 18:45 | NUR ---
REPORT FROM Estephanie GARIBAY RN. ASSUMED PT. CARE.
[2019-10-24] MEDS ORDERED: ATORVASTATIN CA40 MG PO (19:00)
[2019-10-24] MEDS ORDERED: HUMALOG100 UNIT/M SC (19:11)
[2019-10-24] MEDS ORDERED: MELOXICAM7.5 MG PO (19:12)
[2019-10-24] MEDS ORDERED: TOPROL XL50 MG PO (19:15)
[2019-10-24] MEDS ORDERED: PROTONIX40 M2 PO (19:15)
[2019-10-24] MEDS ORDERED: TRESIBA FL200 UNIT/M SC (19:16)
--- NOTE | 2019-10-24 19:35 | NUR ---
PT. RESTING IN BED IN NO DISTRESS. SPOUSE AT BEDSIDE AT THIS TIME. RESPS EVEN, UNLABORED AT THIS TIME. PT. SPEAKING IN FULL SENTENCES. LUNGS DIMINISHED TO BASES BILAT. SKIN WARM AND DRY. AFEBRILE. IV FLUIDS INFUSING ORDERED. BOWEL SOUNDS ACTIVE. [place]. JACOBO. PT. DENIES COMPLAINTS OF PAIN OR NEED AT THIS TIME. NO EDEMA NOTED. DISTIL PULSES INTACT. CALL LIGHT WITHIN REACH. WILL CONTINUE TO MONITOR.
[2019-10-24 20:00] VITALS: BP 127/49
--- NOTE | 2019-10-24 21:04 | NUR ---
PT. MEDICATED PER PHYSICIAN ORDERS. RESPS REMAIN EVEN AND UNLABORED. SKIN REMAINS WARM AND DRY. ACCUCHECK 154 AT THIS TIME. CALL LIGHT REMAIN WITHIN REACH. WILL CON TINUE TO MONITOR.
[2019-10-24 22:00] VITALS: BP 147/89
--- NOTE | 2019-10-24 22:05 | NUR ---
PT. ASSISTED TO BSC. MODERATE BM OUT AT THIS TIME. RESPS EVEN AND UNLABORED. SPO2 IS 98% 2L VIA NC. NO DISTRESS NOTED.
[2019-10-25] VITALS (10 sets, daily range): BP systolic 114–171; BP diastolic 52–83
--- NOTE | 2019-10-25 00:08 | NUR ---
PT. REMAINS STABLE ON THE MONITOR. DENIES ANY SYMPTOMS OF NEAR OR SYMCOPE PREVIOUSLY EXPERIENCED. REMAINS AFEBILE. CALL LIGHT REMAINS WIHTIN REACH. DENIES COMPLAINTS OF PAIN OR NEED. WILL CONTINUE TO CLOSELY MONITOR.
--- NOTE | 2019-10-25 02:01 | NUR ---
PT. ASSISTED TO BSC AT THIS TIME. REMAINS STABLE. CALL LIGHT REMAINS WITHIN REACH. DENIES COMPLAINTS OF PAIN OR NEED. SKIN REMAINS WARM AND DRY. WILL CONTINUE TO CLOSELY MONITOR.
--- NOTE | 2019-10-25 05:51 | NUR ---
PT. ASSISTED TO BSC AT THIS TIME. REMAINS STABLE. IV FLUIDS CONTINUE TO INFUSE ORDERED. RESPS EVEN AND UNLABORED. SKIN WARM AND DRY. BP/HR STABLE. CALL LIGHT WITHIN REACH.
--- NOTE | 2019-10-25 06:45 | NUR ---
RECIEVED REPORT FROM HEIKE ALVARADO. ASSUMED PT CARE.
--- NOTE | 2019-10-25 08:00 | NUR ---
PT RESTING IN BED, A&OX4, ABLE TO MAKE NEEDS KNOWN. DENIES CP, SOB OR DISTRESS AT THIS TIME. RESPIRATIONS EVEN/UNLABORED, ABDOMEN SOFT, NON-TENDER. LBM 10-25-19. PT STATES R SHOULDER DISCOMFORT. CALL LIGHT IN REACH. WILL MONITOR.
--- NOTE | 2019-10-25 09:56 | NUR ---
ARRIVED AT BEDSIDE, SUSAN SENT TO PHARMACY FOR APPROVAL TO USE FOR PT. ALL OTHER HOME MEDS RETURNED TO PT'S HUSBANDE.
--- NOTE | 2019-10-25 10:31 | NUR ---
YUMIKO SCHILLING AT BEDSIDE FOR ASSESSMENT AND TO DISCUSS PLAN OF CARE. REMAINS AT BEDSIDE.
--- NOTE | 2019-10-25 11:02 | NUR ---
ECHO DONE AT BEDSIDE.
--- NOTE | 2019-10-25 12:40 | NUR ---
DIETARY AT BEDSIDE FOR MEAL ORDERS, REMAINS AT BEDSIDE.
--- NOTE | 2019-10-25 14:05 | NUR ---
DR. METZ AND YUMIKO SCHILLING AT [facility] FOR ASSESSEMENT AND TO DISCUSS PLAN OF CARE, NEW ORDERS RECIEVED.
--- NOTE | 2019-10-25 16:00 | NUR ---
FRIEND AT BEDSIDE. PT OFFERS NO COMPLAINTS AT THIS TIME. CALL LIGHT IN REACH .WILL MONITOR.
--- NOTE | 2019-10-25 17:30 | NUR ---
YUMIKO YADAV AT BEDSIDE FOR ASSESSMENT AND TO DISCUSS PLAN OF Care.
[2019-10-25] MEDS ORDERED: ELIQUIS2.5 MG PO (17:49)
--- NOTE | 2019-10-25 18:00 | NUR ---
IV site discontinued, cath intact. No edema , no redness, voices no discomfort.
--- NOTE | 2019-10-25 19:05 | NUR ---
PT. DISCHARGED. WHEELED DOWN BY THIS RN AND ASSISTED INTO AWAITING VEHICLE AND SPOUSE.
== END 2019-10-25 19:05 | disposition home or self-care (01) ==
LOC: ED 12:37 → ED-I 14:15 → ED 15:58 → ICU 15:59
PROVIDERS: Family Medicine; ADMIT Internal Medicine; ATTEND Internal Medicine
DX: I48.92 Unspecified atrial flutter (principal); J18.9 Pneumonia, unspecified organism; J43.9 Emphysema, unspecified; I11.0 Hypertensive heart disease with heart failure; I50.22 Chronic systolic (congestive) heart failure; E11.42 Type 2 diabetes mellitus with diabetic polyneuropathy; I25.10 Atherosclerotic heart disease of native coronary artery without angina pectoris; E78.5 Hyperlipidemia, unspecified; I25.5 Ischemic cardiomyopathy; Z95.5 Presence of coronary angioplasty implant and graft; Z87.891 Personal history of nicotine dependence; Z79.4 Long term (current) use of insulin
CPT/HCPCS: Q9967

== ENCOUNTER 2020-09-06 15:17 | Inpatient (IN) | payer MEDICARE, MEDICAID ==
[~2020-09-06] VITALS: Ht 157.5 cm; Wt 65.8 kg
[~2020-09-06 15:17] MED LIST changes: +ELIQUIS2.5 MG PO; +MELOXICAM7.5 MG PO; +TRESIBA FL200 UNIT/M SC
[2020-09-06 15:54] LABS: IMMATURE GRANULOCYTES 0.5 % (0.0-5.0); MEAN CORPUSCULAR HGB 23.3 pG CALC (26.0-32.0); MEAN CORPUSCULAR HGB CONC 28.6 g/dL CAL (32.0-36.0); NEUT# 13.08 thou/uL (2.00-7.15); RED BLOOD COUNT 3.52 mill/uL (4.20-5.60); RED CELL DISTRI WIDTH 15.9 % (11.5-15.5)
[2020-09-06 15:58] LABS: HEMATOCRIT 28.7 % (37.0-47.0); HEMOGLOBIN 8.2 g/dl (12.0-16.0); MEAN CELL VOLUME 81.5 fL CALC (80.0-100.0)
[2020-09-06 16:09] LABS: ALBUMIN 4.1 g/dL (3.2-5.0); ALKALINE PHOSPHATASE 89 u/l (38-126); ANION GAP 17 (6-22 (CALC)); BILIRUBIN, TOTAL 0.4 mg/dL (0.0-1.4); BUN 19 mg/dL (8-23); BUN/CREATININE RATIO 22 (12-20 (CALC)); CARBON DIOXIDE 24 mmol/l (22-30); CHLORIDE 105 mmol/l (95-108); CREATININE 0.9 mg/dL (0.5-1.0); GFR > 60 ML/MIN (>=60 (CALC)); GFR FOR AFR.AMER. > 60 ML/MIN (>=60 (CALC)); POTASSIUM 4.5 mmol/l (3.5-5.1); SGOT/AST 27 u/l (9-36); SODIUM 142 mmol/l (137-146); TOTAL PROTEIN 7.1 g/dL (6.3-8.2)
[2020-09-06] MEDS ORDERED: IBANDRONATE SO150 MG PO (16:27)
[2020-09-06 18:12] LABS: URINE BILIRUBIN - DIPSTICK NEGATIVE (NEGATIVE); URINE BLOOD DIPSTICK NEGATIVE (NEGATIVE); URINE GLUCOSE - DIPSTICK NEGATIVE (NEGATIVE); URINE KETONE NEGATIVE (NEGATIVE); URINE LEUK ESTERASE NEGATIVE (NEGATIVE); URINE NITRITE - DIPSTICK NEGATIVE (Negative); URINE PH 6.5 (4.5-8.0); URINE PROTEIN - DIPSTICK NEGATIVE (NEG-TRACE); URINE SPECIFIC GRAVITY 1.015; URINE UROBILINOGEN - DIPSTICK 0.2 E.U./dL (0.2)
[2020-09-06 18:16] LABS: URINE COLOR YELLOW
[2020-09-06 19:16] VITALS: BP 141/61
[2020-09-07 04:06] VITALS: BP 149/67
[2020-09-07 06:46] LABS: HEMATOCRIT 30.3 % (37.0-47.0); HEMOGLOBIN 8.6 g/dl (12.0-16.0); MEAN CELL VOLUME 80.6 fL CALC (80.0-100.0); MEAN CORPUSCULAR HGB 22.9 pG CALC (26.0-32.0); MEAN CORPUSCULAR HGB CONC 28.4 g/dL CAL (32.0-36.0); RED BLOOD COUNT 3.76 mill/uL (4.20-5.60); RED CELL DISTRI WIDTH 16.1 % (11.5-15.5)
[2020-09-07 07:00] LABS: ANION GAP 21 (6-22 (CALC)); BUN 26 mg/dL (8-23); BUN/CREATININE RATIO 30 (12-20 (CALC)); CALCULATED LDLCHOLESTEROL 54 mg/dL (62-129 (CALC)); CARBON DIOXIDE 21 mmol/l (22-30); CHLORIDE 101 mmol/l (95-108); CHOLESTEROL HDL RATIO 3.9 (<4.4 (CALC)); CREATININE 0.8 mg/dL (0.5-1.0); GFR > 60 ML/MIN (>=60 (CALC)); GFR FOR AFR.AMER. > 60 ML/MIN (>=60 (CALC)); HDL CHOLESTEROL 32 mg/dL (>=40); MAGNESIUM 1.8 mg/dL (1.6-2.3); POTASSIUM 4.9 mmol/l (3.5-5.1); SODIUM 138 mmol/l (137-146); TOTAL CHOLESTEROL 123 mg/dl (0-199); TOTAL TRIGLYCERIDES 187 mg/dl (30-149); VLDL CHOLESTROL 37 mg/dl (0-48 (CALC))
[2020-09-07 07:37] VITALS: BP 120/77
[2020-09-07 09:54] VITALS: BP 170/76
[2020-09-07 13:11] VITALS: BP 127/55
[2020-09-07 15:25] VITALS: BP 93/54
[2020-09-07 19:45] VITALS: BP 94/40
[2020-09-08 04:47] VITALS: BP 100/45
[2020-09-08 08:20] VITALS: BP 101/48
[2020-09-08 10:30] VITALS: BP 91/50
[2020-09-08 14:04] VITALS: BP 91/50
== END 2020-09-08 14:37 | disposition short-term general hospital (02) | DRG 281 ==
LOC: ED 15:17 → ED-I 17:20 → ED 17:50 → MS2 17:51
PROVIDERS: Emergency Medicine; Nurse Practitioner; ADMIT Internal Medicine; ATTEND Internal Medicine
PROC: 3E0234Z Introduction of Serum, Toxoid and Vaccine into Muscle, Percutaneous Approach (ICD-10-PCS; principal; 2020-09-07)
DX: I21.4 Non-ST elevation (NSTEMI) myocardial infarction (principal); I50.22 Chronic systolic (congestive) heart failure; J96.10 Chronic respiratory failure, unspecified whether with hypoxia or hypercapnia; J43.9 Emphysema, unspecified; I11.0 Hypertensive heart disease with heart failure; E11.65 Type 2 diabetes mellitus with hyperglycemia; I25.5 Ischemic cardiomyopathy; D64.9 Anemia, unspecified; E78.5 Hyperlipidemia, unspecified; E11.42 Type 2 diabetes mellitus with diabetic polyneuropathy; R19.7 Diarrhea, unspecified; I25.10 Atherosclerotic heart disease of native coronary artery without angina pectoris; F17.200 Nicotine dependence, unspecified, uncomplicated; Z23 Encounter for immunization; Z79.4 Long term (current) use of insulin; Z95.5 Presence of coronary angioplasty implant and graft; Z79.01 Long term (current) use of anticoagulants; Z20.828 Contact with and (suspected) exposure to other viral communicable diseases
CPT/HCPCS: J1650; J1756; S0164

== ENCOUNTER 2021-06-02 06:53 | Inpatient (IN) | payer MEDICARE, MEDICAID ==
[2021-06-02] VITALS (8 sets, daily range): BP systolic 92–150; BP diastolic 50–61
[~2021-06-02 06:53] MED LIST changes: +IBANDRONATE SO150 MG PO
[2021-06-02 07:23] LABS: HEMATOCRIT 35.2 % (37.0-47.0); HEMOGLOBIN 9.7 g/dl (12.0-16.0); IMMATURE GRANULOCYTES 0.7 % (0.0-5.0); MEAN CELL VOLUME 83.8 fL CALC (80.0-100.0); MEAN CORPUSCULAR HGB 23.1 pG CALC (26.0-32.0); MEAN CORPUSCULAR HGB CONC 27.6 g/dL CAL (32.0-36.0); PLATELET COUNT 582 thou/uL (130-400); RED CELL DISTRI WIDTH 16.5 % (11.5-15.5)
[2021-06-02 07:33] LABS: MANUAL DIFFERENTIAL YES
[2021-06-02] MEDS ORDERED: PLAVIX75 MG PO (07:35)
[2021-06-02 07:37] LABS: ALBUMIN 4.2 g/dL (3.2-5.0); ALKALINE PHOSPHATASE 95 u/l (38-126); ANION GAP 17 (6-22 (CALC)); BUN 18 mg/dL (8-23); BUN/CREATININE RATIO 21 (12-20 (CALC)); CARBON DIOXIDE 27 mmol/l (22-30); CHLORIDE 101 mmol/l (95-108); CREATININE 0.9 mg/dL (0.5-1.0); GFR > 60 ML/MIN (>=60 (CALC)); GFR FOR AFR.AMER. > 60 ML/MIN (>=60 (CALC)); POTASSIUM 4.3 mmol/l (3.5-5.1); SODIUM 141 mmol/l (137-146); TOTAL PROTEIN 7.5 g/dL (6.3-8.2)
[2021-06-02] MEDS ORDERED: VITAMIN D5000 UNI1 PO (07:37)
[2021-06-02] MEDS ORDERED: ENTRESTO 24-261 TAB PO (07:38)
[2021-06-02 07:39] LABS: BILIRUBIN, TOTAL 0.4 mg/dL (0.0-1.4); SGOT/AST 46 u/l (9-36)
[2021-06-02] MEDS ORDERED: FUROSEMIDE20 MG PO (07:39)
[2021-06-02 07:45] LABS: ACT PARTIAL THROMBO TIME 19.7 SECONDS (20.0-32.5)
[2021-06-02 07:49] LABS: MYOGLOBIN 119 ng/mL (0 - 62)
[2021-06-02 07:50] LABS: D-DIMER 0.47 mg/L (0.19-0.60)
[2021-06-02 08:04] LABS: BAND 4 % (0-8)
[2021-06-02 08:05] LABS: PLATELET ESTIMATE MARKED INCREASE
[2021-06-02] MEDS ORDERED: TOPROL XL25 M1 PO (09:26)
[2021-06-02] MEDS ORDERED: FAMOTIDINE20 M1 PO (09:27)
[2021-06-02 10:39] LABS: URINE BILIRUBIN - DIPSTICK NEGATIVE (NEGATIVE); URINE BLOOD DIPSTICK NEGATIVE (NEGATIVE); URINE COLOR YELLOW; URINE GLUCOSE - DIPSTICK 500 mg/dL (NEGATIVE); URINE KETONE NEGATIVE (NEGATIVE); URINE LEUK ESTERASE NEGATIVE (NEGATIVE); URINE NITRITE - DIPSTICK NEGATIVE (Negative); URINE PROTEIN - DIPSTICK TRACE mg/dL (NEG-TRACE); URINE SPECIFIC GRAVITY 1.015; URINE UROBILINOGEN - DIPSTICK 0.2 E.U./dL (0.2)
[2021-06-03] VITALS (10 sets, daily range): BP systolic 82–137; BP diastolic 36–80
[2021-06-03 05:56] LABS: ALKALINE PHOSPHATASE 74 u/l (38-126); BUN 35 mg/dL (8-23); BUN/CREATININE RATIO 34 (12-20 (CALC)); CARBON DIOXIDE 27 mmol/l (22-30); CHLORIDE 98 mmol/l (95-108); GFR 55 ML/MIN (>=60 (CALC)); GFR FOR AFR.AMER. > 60 ML/MIN (>=60 (CALC)); POTASSIUM 4.4 mmol/l (3.5-5.1); SGOT/AST 25 u/l (9-36)
[2021-06-03 06:03] LABS: ALBUMIN 3.2 g/dL (3.2-5.0); ANION GAP 12 (6-22 (CALC)); BILIRUBIN, TOTAL 0.2 mg/dL (0.0-1.4); SODIUM 133 mmol/l (137-146); TOTAL PROTEIN 5.7 g/dL (6.3-8.2)
[2021-06-03 06:04] LABS: HEMOGLOBIN 7.9 g/dl (12.0-16.0); IMMATURE GRANULOCYTES 0.4 % (0.0-5.0); MEAN CELL VOLUME 79.9 fL CALC (80.0-100.0); MEAN CORPUSCULAR HGB CONC 28.7 g/dL CAL (32.0-36.0); NEUT# 12.28 thou/uL (2.00-7.15); RED BLOOD COUNT 3.44 mill/uL (4.20-5.60); RED CELL DISTRI WIDTH 16.6 % (11.5-15.5)
[2021-06-03 06:11] LABS: HEMATOCRIT 27.5 % (37.0-47.0)
[2021-06-04] VITALS (14 sets, daily range): BP systolic 87–153; BP diastolic 4–92
[2021-06-04 05:56] LABS: HEMATOCRIT 31.8 % (37.0-47.0); HEMOGLOBIN 9.1 g/dl (12.0-16.0); IMMATURE GRANULOCYTES 0.3 % (0.0-5.0); MEAN CELL VOLUME 80.7 fL CALC (80.0-100.0); MEAN CORPUSCULAR HGB 23.1 pG CALC (26.0-32.0); MEAN CORPUSCULAR HGB CONC 28.6 g/dL CAL (32.0-36.0); NEUT# 12.19 thou/uL (2.00-7.15); RED BLOOD COUNT 3.94 mill/uL (4.20-5.60); RED CELL DISTRI WIDTH 16.5 % (11.5-15.5)
[2021-06-04 06:08] LABS: ANION GAP 11 (6-22 (CALC)); BUN 33 mg/dL (8-23); BUN/CREATININE RATIO 40 (12-20 (CALC)); CARBON DIOXIDE 32 mmol/l (22-30); CHLORIDE 99 mmol/l (95-108); CREATININE 0.8 mg/dL (0.5-1.0); GFR > 60 ML/MIN (>=60 (CALC)); GFR FOR AFR.AMER. > 60 ML/MIN (>=60 (CALC)); MAGNESIUM 2.2 mg/dL (1.6-2.3); POTASSIUM 4.1 mmol/l (3.5-5.1); SODIUM 137 mmol/l (137-146)
[2021-06-05] VITALS (9 sets, daily range): BP systolic 94–143; BP diastolic 38–73
[2021-06-05 05:31] LABS: HEMATOCRIT 28.4 % (37.0-47.0); HEMOGLOBIN 8.1 g/dl (12.0-16.0); MEAN CELL VOLUME 80.2 fL CALC (80.0-100.0); MEAN CORPUSCULAR HGB 22.9 pG CALC (26.0-32.0); MEAN CORPUSCULAR HGB CONC 28.5 g/dL CAL (32.0-36.0); RED BLOOD COUNT 3.54 mill/uL (4.20-5.60); RED CELL DISTRI WIDTH 16.3 % (11.5-15.5)
[2021-06-05 05:42] LABS: ANION GAP 9 (6-22 (CALC)); BUN 26 mg/dL (8-23); BUN/CREATININE RATIO 34 (12-20 (CALC)); CARBON DIOXIDE 34 mmol/l (22-30); CHLORIDE 97 mmol/l (95-108); CREATININE 0.8 mg/dL (0.5-1.0); GFR > 60 ML/MIN (>=60 (CALC)); GFR FOR AFR.AMER. > 60 ML/MIN (>=60 (CALC)); MAGNESIUM 2.3 mg/dL (1.6-2.3); POTASSIUM 3.9 mmol/l (3.5-5.1); SODIUM 136 mmol/l (137-146)
[2021-06-05] MEDS ORDERED: LASIX 40 MG TAB40 MG PO (15:02)
[2021-06-05] MEDS ORDERED: MOXIFLOXACIN H400 MG PO (15:09)
== END 2021-06-05 17:10 | disposition home or self-care (01) | DRG 871 ==
LOC: ED 06:53 → ED-I 08:13 → ED 08:25 → ICU 08:26
PROVIDERS: Family Medicine; Hospitalist; ADMIT Internal Medicine; ATTEND Internal Medicine
PROC: 5A09357 Assistance with Respiratory Ventilation, Less than 24 Consecutive Hours, Continuous Positive Airway Pressure (ICD-10-PCS; principal; 2021-06-02)
DX: A41.9 Sepsis, unspecified organism (principal); I50.23 Acute on chronic systolic (congestive) heart failure; J18.9 Pneumonia, unspecified organism; J96.21 Acute and chronic respiratory failure with hypoxia; E87.4 Mixed disorder of acid-base balance; I11.0 Hypertensive heart disease with heart failure; J43.9 Emphysema, unspecified; R65.20 Severe sepsis without septic shock; I25.10 Atherosclerotic heart disease of native coronary artery without angina pectoris; E11.42 Type 2 diabetes mellitus with diabetic polyneuropathy; E78.5 Hyperlipidemia, unspecified; K21.9 Gastro-esophageal reflux disease without esophagitis; F17.200 Nicotine dependence, unspecified, uncomplicated; Z79.4 Long term (current) use of insulin; Z95.5 Presence of coronary angioplasty implant and graft; Z20.822 Contact with and (suspected) exposure to COVID-19; E66.9 Obesity, unspecified; Z68.28 Body mass index [BMI] 28.0-28.9, adult
CPT/HCPCS: J1650

== ENCOUNTER 2021-06-19 10:19 | Observation (INO) | payer MEDICARE, MEDICAID ==
[~2021-06-19] VITALS: Ht 157.5 cm; Wt 67.0 kg
--- NOTE | 2021-06-19 03:20 | NUR ---
BLOOD TRANSFUSION BEGAN AT THIS TIME, PATIENT TOLERATING WELL
[~2021-06-19 10:19] MED LIST changes: +FAMOTIDINE20 M1 PO; +FUROSEMIDE20 MG PO; +LASIX 40 MG TAB40 MG PO; +MOXIFLOXACIN H400 MG PO; +PLAVIX75 MG PO; +TOPROL XL25 M1 PO; +VITAMIN D5000 UNI1 PO
--- NOTE | 2021-06-19 10:30 | NUR ---
TO ROOM FOR TRIAGE
--- NOTE | 2021-06-19 11:30 | NUR ---
STABLE ON MONITOR. NO CONCERNS VOICED.
[2021-06-19 12:06] LABS: HEMATOCRIT 22.5 % (37.0-47.0); IMMATURE GRANULOCYTES 0.2 % (0.0-5.0); MEAN CELL VOLUME 80.6 fL CALC (80.0-100.0); MEAN CORPUSCULAR HGB 22.2 pG CALC (26.0-32.0); MEAN CORPUSCULAR HGB CONC 27.6 g/dL CAL (32.0-36.0); NEUT# 9.86 thou/uL (2.00-7.15); RED BLOOD COUNT 2.79 mill/uL (4.20-5.60); RED CELL DISTRI WIDTH 18.1 % (11.5-15.5)
[2021-06-19 12:18] LABS: ALBUMIN 3.8 g/dL (3.2-5.0); ALKALINE PHOSPHATASE 66 u/l (38-126); BILIRUBIN, TOTAL 0.2 mg/dL (0.0-1.4); BUN 19 mg/dL (8-23); BUN/CREATININE RATIO 20 (12-20 (CALC)); CHLORIDE 100 mmol/l (95-108); CREATININE 0.9 mg/dL (0.5-1.0); GFR > 60 ML/MIN (>=60 (CALC)); GFR FOR AFR.AMER. > 60 ML/MIN (>=60 (CALC)); SGOT/AST 23 u/l (9-36); SODIUM 140 mmol/l (137-146); TOTAL PROTEIN 6.7 g/dL (6.3-8.2)
[2021-06-19 12:28] LABS: ANION GAP 18 (6-22 (CALC)); CARBON DIOXIDE 26 mmol/l (22-30)
[2021-06-19 12:30] LABS: MYOGLOBIN 91 ng/mL (0 - 62)
[2021-06-19 12:32] LABS: HEMOGLOBIN 6.2 g/dl (12.0-16.0)
--- NOTE | 2021-06-19 12:35 | NUR ---
NO CHANGES, NO DISTRESS.
--- NOTE | 2021-06-19 13:32 | NUR ---
IV FLUIDS INFUSING AT THIS TIME. VITALS STABLE.
--- NOTE | 2021-06-19 13:43 | NUR ---
CONSENT FOR BLOOD TRANSUION OBTAINED
[2021-06-19 14:45] VITALS: BP 150/70
--- NOTE | 2021-06-19 15:00 | NUR ---
PT RECEIVING BLOOD AT THIS TIME, TOLERATING WELL. SEE TAR DOCUMENTATION.
[2021-06-19 15:09] VITALS: BP 166/74
[2021-06-19 15:49] LABS: URINE BILIRUBIN - DIPSTICK NEGATIVE (NEGATIVE); URINE BLOOD DIPSTICK NEGATIVE (NEGATIVE); URINE COLOR YELLOW; URINE GLUCOSE - DIPSTICK NEGATIVE (NEGATIVE); URINE KETONE NEGATIVE (NEGATIVE); URINE LEUK ESTERASE NEGATIVE (NEGATIVE); URINE PROTEIN - DIPSTICK NEGATIVE (NEG-TRACE); URINE SPECIFIC GRAVITY 1.025; URINE UROBILINOGEN - DIPSTICK 0.2 E.U./dL (0.2)
[2021-06-19 15:55] VITALS: BP 142/65
--- NOTE | 2021-06-19 16:00 | NUR ---
PT TOLERATING BLOOD TRANSFUSION WELL. NO CHANGE IN VITALS OR REPORTS OF ADVERSE REACTIONS. CONTINUING TO MONITOR.
[2021-06-19 16:01] LABS: URINE NITRITE - DIPSTICK NEGATIVE (Negative)
--- NOTE | 2021-06-19 17:00 | NUR ---
SNACK PROVIDED FOR PT.
--- NOTE | 2021-06-19 17:33 | NUR ---
BLOOD INFUSION COMPLETED. PT TOLERATED WELL. VITALS UPDATED. NO ADVERSE REACTIONS NOTED. WILL CONTINUE TO MONITOR.
--- NOTE | 2021-06-19 18:54 | NUR ---
REPORT GIVEN TO HEIKE WEINBERG. ASKED IF WE COULD WAIT A FEW BEFORE TAKING PT UP DUE TO SHIFT CHANGE & REPORT. PT ADMITTED TO [facility] [id number].
--- NOTE | 2021-06-19 19:30 | NUR ---
PT TRASNPORTED TO MED SURG, ALL BELONGINGS SENT WITH PATIENT
[2021-06-19 20:10] VITALS: BP 126/57
--- NOTE | 2021-06-19 20:10 | NUR ---
PATIENT ARRIVED ON FLOOR ACOMPANIED BY ER STAFF. PHYSICAL ASSESMENT COMPLETED AT THIS TIME. NOTED LABORED SHALLOW BREATHING, PATIENT REPORTS FEELING LIKE THIS FOR AWHILE. PATIENT ON TELEMTRY READING SR 90. NORMAL HEART SOUNDS. PATIENT HAS A #20 IN THE RIGHT AC, PATENT AND HEALTHY SITE. ORIENTED TO ROOM AND CALL LIGHT SYSTEM, ISNTRUCTED TO CALL IF SHE IS TO NEED ANYTHING. CALL LIGHT AND BEDSIDE TABLE WITHIN REACH.
[2021-06-19 23:07] VITALS: BP 129/61
--- NOTE | 2021-06-19 23:07 | NUR ---
BLOOD TRANSFUSION BEGAN AT THIS TIME. PATIENT TOLERATING WELL.
[2021-06-19 23:22] VITALS: BP 126/62
[2021-06-20] VITALS (7 sets, daily range): BP systolic 117–129; BP diastolic 64–69
--- NOTE | 2021-06-20 01:25 | NUR ---
BLOOD COMPLETED AT THIS TIME.
--- NOTE | 2021-06-20 03:00 | NUR ---
PATIENT KVNG ST AT 145, REPORTS FEELING PALPITATIONS, STAT EKG ORDERED. DR JACKSON CONSULTED REGARDING PATIENTS HOME MEDICATION METROPOLOL. VERBAL ORDER RECEIVED FRO IV METROPOLOL 5MG IF HR IS ABOUVE 120.
--- NOTE | 2021-06-20 06:00 | NUR ---
BLOOD COMPLETED AT THIS TIME
--- NOTE | 2021-06-20 07:20 | NUR ---
PATIENT RESTING IN BED AT THIS TIME COMBINATION SAW OPERATOR DONE SEE INTERVENTIONS. PATIENT DENIES ANY PAIN AT THIS TIME. PATIENT ALERT AND ORIENTED X 3 SIDERAILS UP X 2 AND CALL LIGHT WITHIN REACH. LUNG SOUNDS ARE CLEAR IN UPPER LOBES DIMINISHED IN LOWERS LOBES. EXHIBITS MILD SHORTNESS OF BREATH ON EXECERTION. O2 ON AT 2 LITERS AND SPO2 IS 95 %. TELE MONITOR ON AND BEING MONITORED BY ED.
[2021-06-20 08:05] LABS: MEAN CELL VOLUME 81.6 fL CALC (80.0-100.0); MEAN CORPUSCULAR HGB 24.9 pG CALC (26.0-32.0); MEAN CORPUSCULAR HGB CONC 30.5 g/dL CAL (32.0-36.0); RED BLOOD COUNT 4.34 mill/uL (4.20-5.60); RED CELL DISTRI WIDTH 17.6 % (11.5-15.5)
[2021-06-20 08:06] LABS: HEMATOCRIT 35.4 % (37.0-47.0); HEMOGLOBIN 10.8 g/dl (12.0-16.0)
[2021-06-20 08:38] LABS: ANION GAP 10 (6-22 (CALC)); BUN 17 mg/dL (8-23); BUN/CREATININE RATIO 22 (12-20 (CALC)); CARBON DIOXIDE 31 mmol/l (22-30); CHLORIDE 102 mmol/l (95-108); CREATININE 0.8 mg/dL (0.5-1.0); GFR > 60 ML/MIN (>=60 (CALC)); GFR FOR AFR.AMER. > 60 ML/MIN (>=60 (CALC)); POTASSIUM 4.2 mmol/l (3.5-5.1); SODIUM 139 mmol/l (137-146)
--- NOTE | 2021-06-20 11:38 | NUR ---
PATIENT SITTING UP ON SIDE OF BED AT THIS TIME. DENEIS ANY NEEDS CURRENTLY TELE REMAINS ON AND BEING MONITORED BY ED. SIDERAILS ARE UP CALL LIGHT WITHIN REACH.
[2021-06-20] MEDS ORDERED: PROTONIX40 M2 PO (12:12)
[2021-06-20] MEDS ORDERED: FERROUS SULF325 M2 PO (13:51)
--- NOTE | 2021-06-20 14:27 | NUR ---
PAGE D/C AT THIS TIME. PATIENT VERBALIZES UNDERSTANDING OF D/C INSTRUCTIONS AT THIS TIME.
--- NOTE | 2021-06-20 14:41 | NUR ---
Discharge instructions given. Patient verbalizes understanding of same. Discharged in stable condition via Wheelchair to Home with family. All belongings sent with pt.
== END 2021-06-20 14:41 | disposition home or self-care (01) ==
LOC: ED 10:19 → ED-I 12:50 → ED 13:09 → ED-I 13:10 → MS2 18:57
PROVIDERS: Emergency Medicine; ADMIT Hospitalist; ATTEND Hospitalist
PROC: 30233N1 Transfusion of Nonautologous Red Blood Cells into Peripheral Vein, Percutaneous Approach (ICD-10-PCS; principal; 2021-06-19)
PROC: 30233N1 Transfusion of Nonautologous Red Blood Cells into Peripheral Vein, Percutaneous Approach (ICD-10-PCS; 2021-06-19)
PROC: 30233N1 Transfusion of Nonautologous Red Blood Cells into Peripheral Vein, Percutaneous Approach (ICD-10-PCS; 2021-06-20)
DX: R06.02 Shortness of breath (principal); D64.9 Anemia, unspecified; I11.0 Hypertensive heart disease with heart failure; I50.23 Acute on chronic systolic (congestive) heart failure; J96.21 Acute and chronic respiratory failure with hypoxia; E87.2 Acidosis; J43.9 Emphysema, unspecified; E11.42 Type 2 diabetes mellitus with diabetic polyneuropathy; I25.10 Atherosclerotic heart disease of native coronary artery without angina pectoris; I48.20 Chronic atrial fibrillation, unspecified; E27.8 Other specified disorders of adrenal gland; K30 Functional dyspepsia; K21.9 Gastro-esophageal reflux disease without esophagitis; E78.5 Hyperlipidemia, unspecified; M48.061 Spinal stenosis, lumbar region without neurogenic claudication; M71.38 Other bursal cyst, other site; Z79.4 Long term (current) use of insulin; Z95.5 Presence of coronary angioplasty implant and graft; Z98.2 Presence of cerebrospinal fluid drainage device; Z99.81 Dependence on supplemental oxygen; Z87.891 Personal history of nicotine dependence; Z20.822 Contact with and (suspected) exposure to COVID-19
CPT/HCPCS: G0378; J1756; P9016

== ENCOUNTER 2021-12-20 19:01 | Inpatient (IN) | payer MEDICARE, MEDICAID ==
[~2021-12-20] VITALS: Ht 157.5 cm; Wt 68.0 kg
[~2021-12-20 19:01] MED LIST changes: +FERROUS SULF325 M2 PO
[2021-12-20 19:17] VITALS: BP 95/77
[2021-12-20 19:30] VITALS: BP 96/55
[2021-12-20] MEDS ORDERED: PLAVIX75 MG PO (19:40)
[2021-12-20 20:03] LABS: URINE BLOOD DIPSTICK TRACE-INTACT (NEGATIVE); URINE COLOR YELLOW; URINE GLUCOSE - DIPSTICK NEGATIVE (NEGATIVE); URINE KETONE NEGATIVE (NEGATIVE); URINE LEUK ESTERASE NEGATIVE (NEGATIVE); URINE PH 5.5 (4.5-8.0); URINE PROTEIN - DIPSTICK 30 mg/dL (NEG-TRACE); URINE SPECIFIC GRAVITY >=1.030; URINE UROBILINOGEN - DIPSTICK 0.2 E.U./dL (0.2)
[2021-12-20 20:04] LABS: HEMATOCRIT 51.9 % (37.0-47.0); HEMOGLOBIN 15.9 g/dl (12.0-16.0); IMMATURE GRANULOCYTES 0.4 % (0.0-5.0); MEAN CORPUSCULAR HGB 28.4 pG CALC (26.0-32.0); MEAN CORPUSCULAR HGB CONC 30.6 g/dL CAL (32.0-36.0); NEUT# 4.51 thou/uL (2.00-7.15); RED BLOOD COUNT 5.59 mill/uL (4.20-5.60); RED CELL DISTRI WIDTH 14.8 % (11.5-15.5)
[2021-12-20 20:05] LABS: URINE BILIRUBIN - DIPSTICK NEGATIVE (NEGATIVE); URINE NITRITE - DIPSTICK NEGATIVE (Negative); URINE SQUAMOUS EPITHELIAL CELL FEW EPI/hpf (0-FEW); URINE WBC 0-2 WBC/hpf (0-5)
[2021-12-20 20:06] LABS: MEAN CELL VOLUME 92.8 fL CALC (80.0-100.0)
[2021-12-20 20:25] LABS: ALBUMIN 4.2 g/dL (3.2-5.0); CREATININE 1.2 mg/dL (0.5-1.0); POTASSIUM 3.9 mmol/l (3.5-5.1); TOTAL PROTEIN 7.7 g/dL (6.3-8.2)
[2021-12-20 20:26] LABS: BILIRUBIN, TOTAL 0.6 mg/dL (0.0-1.4)
[2021-12-20 22:05] VITALS: BP 104/54
[2021-12-20 22:30] VITALS: BP 107/69
[2021-12-20 23:01] VITALS: BP 120/50
[2021-12-20 23:31] VITALS: BP 91/46
[2021-12-21 00:01] VITALS: BP 107/66
[2021-12-21 00:31] VITALS: BP 104/55
[2021-12-21 04:00] VITALS: BP 93/44
[2021-12-21 05:50] LABS: IMMATURE GRANULOCYTES 0.7 % (0.0-5.0); MEAN CELL VOLUME 93.3 fL CALC (80.0-100.0); MEAN CORPUSCULAR HGB 28.9 pG CALC (26.0-32.0); NEUT# 4.54 thou/uL (2.00-7.15); RED BLOOD COUNT 4.63 mill/uL (4.20-5.60); RED CELL DISTRI WIDTH 14.9 % (11.5-15.5)
[2021-12-21 05:56] LABS: HEMATOCRIT 43.2 % (37.0-47.0); HEMOGLOBIN 13.4 g/dl (12.0-16.0)
[2021-12-21 06:45] LABS: ALKALINE PHOSPHATASE 50 u/l (38-126); BUN 25 mg/dL (8-23); BUN/CREATININE RATIO 28 (12-20 (CALC)); C-REACTIVE PROTEIN 5.1 mg/dL (0-0.9); CHLORIDE 105 mmol/l (95-108); CREATININE 0.9 mg/dL (0.5-1.0); GFR > 60 ML/MIN (>=60 (CALC)); GFR FOR AFR.AMER. > 60 ML/MIN (>=60 (CALC)); SGOT/AST 42 u/l (9-36); SODIUM 136 mmol/l (137-146)
[2021-12-21 06:46] LABS: ALBUMIN 2.8 g/dL (3.2-5.0); ANION GAP 16 (6-22 (CALC)); BILIRUBIN, TOTAL 0.3 mg/dL (0.0-1.4); CARBON DIOXIDE 20 mmol/l (22-30); TOTAL PROTEIN 5.3 g/dL (6.3-8.2)
[2021-12-21] MEDS ORDERED: TOPROL XL25 M1 PO (09:41)
[2021-12-21] MEDS ORDERED: LASIX 20 MG TAB20 MG PO (09:46)
[2021-12-21] MEDS ORDERED: TRESIBA FL200 UNIT/M SC (11:45)
[2021-12-21 12:00] VITALS: BP 138/61
[2021-12-21 16:12] VITALS: BP 123/50
[2021-12-21 19:00] VITALS: BP 135/65
[2021-12-22] VITALS: BP 99/57
[2021-12-22 04:00] VITALS: BP 127/62
[2021-12-22 05:19] LABS: HEMATOCRIT 50.5 % (37.0-47.0); HEMOGLOBIN 15.4 g/dl (12.0-16.0); IMMATURE GRANULOCYTES 1.1 % (0.0-5.0); MEAN CELL VOLUME 93.2 fL CALC (80.0-100.0); MEAN CORPUSCULAR HGB 28.4 pG CALC (26.0-32.0); MEAN CORPUSCULAR HGB CONC 30.5 g/dL CAL (32.0-36.0); NEUT# 8.28 thou/uL (2.00-7.15); RED BLOOD COUNT 5.42 mill/uL (4.20-5.60); RED CELL DISTRI WIDTH 14.8 % (11.5-15.5)
[2021-12-22 05:56] LABS: ALBUMIN 3.1 g/dL (3.2-5.0); ALKALINE PHOSPHATASE 59 u/l (38-126); ANION GAP 18 (6-22 (CALC)); BILIRUBIN, TOTAL 0.3 mg/dL (0.0-1.4); BUN 29 mg/dL (8-23); BUN/CREATININE RATIO 28 (12-20 (CALC)); C-REACTIVE PROTEIN 4.3 mg/dL (0-0.9); CARBON DIOXIDE 20 mmol/l (22-30); CHLORIDE 109 mmol/l (95-108); GFR 55 ML/MIN (>=60 (CALC)); GFR FOR AFR.AMER. > 60 ML/MIN (>=60 (CALC)); POTASSIUM 4.4 mmol/l (3.5-5.1); SGOT/AST 67 u/l (9-36); SODIUM 141 mmol/l (137-146); TOTAL PROTEIN 5.8 g/dL (6.3-8.2)
[2021-12-22 08:44] VITALS: BP 135/68
[2021-12-22 10:53] LABS: ACT PARTIAL THROMBO TIME 21.2 SECONDS (20.0-32.5); INTERNATIONAL NORMALIZED RATIO 0.9 RATIO (0.7-1.3); PROTHROMBIN TIME 9.8 SECONDS (9.0-12.5)
[2021-12-22 11:13] VITALS: BP 130/65
[2021-12-22 15:31] VITALS: BP 112/61
== END 2021-12-22 18:45 | disposition short-term general hospital (02) | DRG 177 ==
LOC: ED 19:01 → ED-I 23:40 → ED 23:51 → MS2 23:52
PROVIDERS: Emergency Medicine; Nurse Practitioner; ADMIT Hospitalist; ATTEND Internal Medicine
PROC: XW033E5 Introduction of Remdesivir Anti-infective into Peripheral Vein, Percutaneous Approach, New Technology Group 5 (ICD-10-PCS; principal; 2021-12-21)
DX: U07.1 COVID-19 (principal); J12.82 Pneumonia due to coronavirus disease 2019; I21.4 Non-ST elevation (NSTEMI) myocardial infarction; J96.21 Acute and chronic respiratory failure with hypoxia; I50.22 Chronic systolic (congestive) heart failure; E87.2 Acidosis; J43.9 Emphysema, unspecified; I11.0 Hypertensive heart disease with heart failure; E11.42 Type 2 diabetes mellitus with diabetic polyneuropathy; I25.10 Atherosclerotic heart disease of native coronary artery without angina pectoris; F17.200 Nicotine dependence, unspecified, uncomplicated; E78.5 Hyperlipidemia, unspecified; Z79.4 Long term (current) use of insulin; Z79.82 Long term (current) use of aspirin; Z95.5 Presence of coronary angioplasty implant and graft; Z99.81 Dependence on supplemental oxygen; E86.0 Dehydration
CPT/HCPCS: J1644; Q9967